=== PATIENT | male | born 1965 | race Caucasian/White ===

== ENCOUNTER 2022-01-02 16:14 | Outpatient (CLI) | payer MEDICARE, BC, SELFPAY | END 2022-01-02 16:15 | disposition home or self-care (01) | PROVIDERS: Visit Provider Family Medicine | DX: S59.912A Unspecified injury of left forearm, initial encounter (principal); W01.198A Fall on same level from slipping, tripping and stumbling with subsequent striking against other object, initial encounter; Y92.89 Other specified places as the place of occurrence of the external cause | CPT/HCPCS: A0425; A0429 ==

== ENCOUNTER 2022-03-12 14:59 | Outpatient (CLI) | payer MEDICARE, SELFPAY | END 2022-03-12 15:00 | disposition home or self-care (01) | LOC: AMB 05-07 10:39 | PROVIDERS: Visit Provider Family Medicine | DX: S99.911A Unspecified injury of right ankle, initial encounter (principal); W18.30XA Fall on same level, unspecified, initial encounter; Y93.9 Activity, unspecified; Y92.038 Other place in apartment as the place of occurrence of the external cause | CPT/HCPCS: A0425; A0427 ==

== ENCOUNTER 2022-12-08 19:34 | Outpatient (CLI) | payer MEDICARE, SELFPAY | END 2022-12-08 19:35 | disposition home or self-care (01) | LOC: AMB 12-11 10:51 | PROVIDERS: Visit Provider Family Medicine | DX: M54.9 Dorsalgia, unspecified (principal) | CPT/HCPCS: A0425; A0433 ==